=== PATIENT | male | born 1995 ===

== ENCOUNTER 2020-12-13 17:59 | Emergency (ER) | payer MEDICAID, SELFPAY ==
[2020-12-13 19:44] VITALS: BP 121/71; PULSE 68; RESP 16; TEMP 37.1; O2SAT 99; BMI 26.4
== END 2020-12-13 22:06 | disposition left against medical advice (07) ==
PROVIDERS: Emergency Provider Emergency Medicine
DX: R53.1 Weakness (principal); R42 Dizziness and giddiness; R06.02 Shortness of breath
CPT/HCPCS: 99281; 99282